=== PATIENT | female | born 1945 | race Caucasian/White ===

== ENCOUNTER 2025-01-14 08:09 | Day surgery (SDC) | payer MEDICARE, OTHER, SELFPAY ==
--- OUTSIDE RECORDS SUMMARY | 2025-01-06 13:34 | XMS_ITS ---
Author Organization [facility] Address [address] [place] [address] Care Team Providers Care Arcade Game Technician Name Role Phone Michele Sangeetha LEE Primary Care Provider Lea Sousa Jr, Bubba Puente [phone] REASON FOR VISIT us Encounters Encounter Location Date Provider Diagnosis [facility] [address] [place] [address] 01/03/2025 Bubba Sousa Jr Plan Of Treatment Next Appt Details Provider Name:Bubba pavon Jr, 01/14/2025 10:00:00 AM, [address] [place] [address] , [place], [place], [phone], Provider Name:Bubba pavon Jr, 06/15/2025 10:40:00 AM, [address], [address], [place], [address], Progress Notes * JEB AWAN EDOB: (79 yo F)Acc No.[id number]:01/03/2025 Patient:?JEB AWAN :1945???Age:79 Y???Sex:Female Address:[place] [address] * true * Date:? Generated for Printi ng/Faxing/eTransmitting on:?01/06/2025 01:34 PM EDT
--- OUTSIDE RECORDS SUMMARY | 2025-01-06 13:34 | XMS_ITS ---
Author Organization [facility] Address [address] [place] [address] Care Team Providers Care Field Broomer Name Role Phone Michele Sangeetha LEE Primary Care Provider Lea Sousa Jr, Bubba Puente REASON FOR VISIT refill pantoprazole Medications Medication SIG (Take, Route, Frequency, Duration) Notes Start Date End Date Status Pantoprazole Sodium 40 MG 1 Orally Twice a day for 30 day(s) 09/10/2024 Active Encounters Encounter Location Date Provider Diagnosis [facility] [address] [place] [address] 10/25/2024 Bubba Sousa Jr Plan Of Treatment Medication Medication Name Sig Start Date Stop Date Notes Pantoprazole Sodium 40 MG 1 Orally Twice a day for 30 day(s) 09/10/2024 Next Appt Details Provider Name:Bubba pavon Jr, 01/14/2025 10:00:00 AM, [address] [place] [address] , [place], [place], [phone], Provider Name:Bubba pavon Jr, 06/15/2025 10:40:00 AM, [address] [place] [address], [address], [place], [address], Progress Notes * JEB AWAN EDOB: 7 (78 yo F)Acc No.[id number]:10/25/2024 Patient:?JEB AWAN :1945???Age:78 Y???Sex:Female Address:[place] [address], [place] [address] [address] * Refills? Refill Pantoprazole Sodium Tablet Delayed Release, 40 MG, Orally, 60, 1, Twice a day, 30 day(s), Refills=0 * true * Date:? Generated for Nuris chapman/Radha/Manuel on:?01/06/2025 01:34 PM EDT
--- OUTSIDE RECORDS SUMMARY | 2025-01-06 13:34 | XMS_ITS ---
Author Organization [facility] Address [address] [place] [address] Care Team Providers Care Barrel Polisher Inside Name Role Phone Michele Sangeetha LEE Primary Care Provider Bubba Willett Jr Allergies Allergen (clinical drug ingredient) Drug/Non Drug Allergy documented on EMR Reaction Allergy Type Onset Date Status Penicillin Unknown Drug Allergy Active REASON FOR VISIT Patient presents today for acid reflux Medications Medication SIG (Take, Route, Frequency, Duration) Notes Start Date End Date Status Pantoprazole Sodium 40 MG 1 Orally Twice a day for 30 day(s) 09/10/2024 Active Pantoprazole Sodium 40 MG 1 tablet 1/2 t o 1 hour before morning meal Orally Once a day for 90 day(s) 06/16/2024 Active PreserVision AREDS 2 - 1 Orally QD as needed Active Advil PRN Active Tylenol PRN Active Clobetasol Propionate 0.05 % 1 application to affected area Externally as directed as needed Active Problems Problem Type SNOMED Code ICD Code Onset Dates Problem Status W/U Status Risk Notes Problem Upper abdominal pain (R10.10) Active confirmed Vital Signs Temperature 98.6 degrees Fahrenheit 12/21/19 25 Blood pressure systolic 001 mm Hg 12/21/19 25 Blood pressure diastolic 01 mm Hg 025 Height 63 in 12/20/2024 Weight 123.2 lbs 12/20/2024 BMI 21.82 kg/m2 12/20/2024 Encounters Encounter Location Date Provider Diagnosis [facility] [address] [place] [address] 12/20/2024 Bubba Sousa Jr Gastroesophageal reflux disease without esophagitis K21.9 ; 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 We discussed gastroesophageal reflux disease today. We discussed Estrella's esophagus. We have recommended further evaluation. We will review her laboratory studies which were done through her primary care provider's office. She will need further evaluation with upper endoscopy. Abdominal ultrasound imaging has also been ordered for her abdominal pain. She understands risks and benefits of endoscopy and agrees to proceed. This will be scheduled at her convenience. 12/20/2024 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 (ICD-10 - K22.70) We discussed h er symptoms today. We discussed gastroesophageal reflux disease today. We discussed Estrella's esophagus. We have recommended further evaluation. We will review her laboratory studies which were done through her primary care provider's office. She will need further evaluation with upper endoscopy. Abdominal ultrasound imaging has also been ordered for her abdominal pain. She understands risks and benefits of endoscopy and agrees to proceed. This will be scheduled at her convenience. 12/20/2024 Upper abdominal pain (ICD-10 - R10.10) We discussed her symptoms today. We discussed gastroesophageal reflux disease today. We discussed Estrella's esophagus. We have recommended further evaluation. We will review her laboratory studies which were done through her primary care provider's office. She will need further evaluation with upper endoscopy. Abdominal ultrasound imaging has also been ordered for her abdominal pain. She understands risks and benefits of endoscopy and agrees to proceed. This will be scheduled at her convenience. Plan Of Treatment Pending Test Test Name Order Date US ABD 12/20/2024 Future Test Test Name Order Date UPPER GI ENDOSCOPY 12/20/2024 Next Appt Details Follow Up: 1 Year, Reason: Provider Name:Bubba pavon Jr, 01/14/2025 10:00:00 AM, [address] [place] [address] , [place], [place], [phone], Provider Name:Bubba pavon Jr, 06/15/2025 10:40:00 AM, [address] [place] [address], [address], [place], [address], Progress Notes * JEB AWAN EDOB: 7 (79 yo F)Acc No.[id number]:12/20/2024 Progress Notes Patient:JEB MAGANA Provider:?Bubba Sousa MD :1945???Age:79 Y???Sex:Female D ate:12/20/2024 Address:[place] [id number] Pcp:Sangeetha Bautista CNP Subjective: * Chief Complaints: * ???1. Patient presents today for acid reflux. * HPI: ???New symptom(s):? Jeb is a pleasant 79-year-old woman seen today in follow-up. She has a history of Estrella's esophagus and gastroesophageal reflux disease. She also complains of upper abdominal pain. Lately reflux symptoms have been under poor control despite pantoprazole 40 mg twice daily. She is using OTC antacids which are liquid at night to help her symptoms. We discussed this today. She has no complaints of dysphagia, hematemesis, or melena. She does have persistent substernal burning despite maximal PPI therapy with omeprazole 40 mg twice daily. * ROS:?General/Constitutional:?Change in appetite?denies.?Fatigue?denies.?ENT:?Patient denies?difficulty swallowing.?Respiratory:?Patient denies?shortness of breath.?Cardiovascular:?Patient denies?chest pain.?Gastrointestinal:?Comments?See HPI for details.?Genitourinary:?Difficulty urinating?denies.?Incontinence?denies.?Musculoskeletal:?Patient denies?muscle aches.?Skin:?Patient denies?pruritis.?Neurologic:?Patient denies?low back pain.?Psychiatric:?Patient denies?mental or physical abuse.? * Medical History:?Colonoscopy 06/15/14, 10 year recall., GERD, Estrella's esophagus, EGD 09/11, intestinal metaplasia no dysplasia, followup optional, Uterine prolapse, Diverticulosis. * Surgical History:?Hysterecto my , hiatal hernia repair , rotator cuff tear repair-right shoulder 2014. * Family History:?Father: dece ased, diagnosed with Heart disease.?Mother: , diagnosed with Heart disease, HTN (hypertension).? Denies family hx of colon cancer, colon polyps or liver ds. * Social History:?Tobacco Use:?Tobacco Use/Smoking?Are you a: nonsmoker.?Drugs/Alcohol:?Alcohol Screen?Points: 1, Interpretation: Negative.?Miscellaneous:?Marital status: . Occupation: retired. * Medications:?Taking Clobetas ol Propionate 0.05 % Ointment 1 application to affected area Externally as directed , Notes to Pharmacist: as needed, Taking PreserVision AREDS 2 - Capsule 1 Orally QD , Notes to Pharmacist: as needed, Taking Tylenol , Notes to Pharmacist: PRN, Taking Advil , Notes to Pharmacist: PRN, Taking Pantoprazole Sodium 40 MG Tablet Delayed Release 1 tablet 1/2 to 1 hour before morning meal Orally Once a day , Taking Pantoprazole Sodium 40 MG Tablet Delayed Release 1 Orally Twice a day , Medication List reviewed and reconciled with the patient * Allergies:?Penicillin. Objective: * Vitals:?Wt: 123.2 lbs, Ht: 6 3 in, BMI: 21.82 Index, BP: 001/01 mm Hg, Temp: 98.6, Wt-k.88. * Examination: ???General Examination: ?GENERAL APPEARANCE:?in no acute distress.?HEAD:?normocephalic.?EYES:?sclera non-icteric.?ORAL CAVITY:?mucosa moist.?NECK/THYROID:?no lymphadenopathy.?SKIN:?anicteric.?HEART:?S1, S2 normal, no murmurs.?LUNGS:?clear to auscultation bilaterally.?CHEST:?normal shape and expansion.?ABDOMEN:?soft, nontender, nondistended, bowel sounds present, no organomegaly .?EXTREMITIES:?no clubbing, cyanosis, or edema.?PSYCH:?cognitive function intact.? Assessment: * Assessment: 1.?Gastroesophageal reflux d isease without esophagitis - K21.9 (Primary)???2.?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 - K22.70???3.?Upper abdominal pain - R10.10??? We discussed her symptoms to day. We discussed gastroesophageal reflux disease today. We discussed Estrella's esophagus. We have recommended further evaluation. We will review her laboratory studies which were done through her primary care provider's office. She will need further evaluation with upper endoscopy. Abdominal ultrasound imaging has also been ordered for her abdominal pain. She understands risks and benefits of endoscopy and agrees to proceed. This will be scheduled at her convenience. Plan: * Treatment: * ?Procedure: UPPER GI ENDOSCOPY (Ordered for 12/20/2024)2.?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?Imaging: US ABD* Velma Muellern 12/20/2024 01: 53:53 PM EDT > [facility]45 a.m. Nothing to eat or drink 8 hours prior to the ultrasound * ?Procedure: UPPER GI ENDOSCOPY (Ordered for 12/20/2024)3.?Upper abdominal pain?Imaging: US ABD* Ami Maddie 12/20/2024 01: 53:53 PM EDT > [facility] at 10:45 a.m. Nothing to eat or drink 8 hours prior to the ultrasound * ?Procedure: UPPER GI ENDOSCOPY (Ordered for 12/20/2024) * Procedure Codes:?G9903 Pt sc rn tbco id as non user, G8785 BP SCR NOT PRFRM REC REASON NOS * Preventive Medicine:? ??Urinary Incontinence:?Urinary Incontinence?Assessment:?Absent,?Plan of care documented:?No, reason not specified.? ??Screenings:?Fall Risk Screening?Fall Risk Assessment:?No falls in the past year,?Screening:?No falls in the past year,?Assessment:?Not performed, no reason specified,?Plan of Care:?Not documented, no reason specified.? * Follow Up:?1 Year * * Sign off status: Completed true * Provider:?Bubba Sousa MD Date:?0 12/20/2024 Generated for Nuris chapman/Radha/Manule on:?01/06/2025 01:34 PM EDT History and Physical Notes * HPI (History of Present Illness) Category Sub-Category Detail Notes Category Not es New symptom(s) Jeb is a pleasant 79-year-old woman seen today in follow-up. She has a history of Estrella's esophagus and gastroesophageal reflux disease. She also complains of upper abdominal pain. Lately reflux symptoms have been under poor control despite pantoprazole 40 mg twice daily. She is using OTC antacids which are liquid at night to help her symptoms. We discussed this today. She has no complaints of dysphagia, hematemesis, or melena. She does have persistent substernal burning despite maximal PPI therapy with omeprazole 40 mg twice daily. Examination Category Sub-Category Detail Notes Category Not es General Examination GENERAL APPEARANCE: in no acute di stress HEAD: normocephalic EYES: sclera non-icteric NECK/THYROID: no lymphadenopathy HEART: S1, S2 normal, no mu rmurs CHEST: normal shape and exp ansion LUNGS: clear to auscultatio n bilaterally ABDOMEN: soft, nontender, non distended, bowel sounds present, no organomegaly SKIN: anicteric EXTREMITIES: no clubbing, cyanosi s, or edema PSYCH: cognitive function i ntact ORAL CAVITY: mucosa moist
--- OUTSIDE RECORDS SUMMARY | 2025-01-06 13:34 | XMS_ITS | Patient Health Record ---
Author Organization [facility] Address [address] [place] [address] Care Team Providers Care Custom Frame Assembler Name Role Phone Michele Sangeetha LEE Primary Care Provider Bubba Willett Jr Unavailable Allergies Allergen (clinical drug ingredient) Drug/Non Drug Allergy documented on EMR Reaction Allergy Type Onset Date Status Penicillin Unknown Drug Allergy Active Reason For Referral No Information Medications Medication SIG (Take, Route, Frequency, Duration) Notes Start Date End Date Status Pantoprazole Sodium 40 MG 1 Orally Twice a day for 30 day(s) 09/10/2024 Active Pantoprazole Sodium 40 MG 1 tablet 1/2 t o 1 hour before morning meal Orally Once a day for 90 day(s) 06/16/2024 Active PreserVision AREDS 2 - 1 Orally QD as needed Active Clobetasol Propionate 0.05 % 1 application to affected area Externally as directed as needed Active Advil PRN Active Tylenol PRN Active Immunizations Vaccine Route Administration Date Status Comme nts Flu vaccine, nasal Unknown 05/27/2016 Administered Flu vaccine no Preserv 3 and > Unknown 07/01/2017 Admin istered Influenza Unknown 06/17/2018 Administered Influenza Unknown 06/01/2019 Administered Influenza Unknown 06/07/2020 Administered Influenza Unknown 05/25/2022 Administered Influenza Unknown 06/03/2023 Administered Influenza Unknown 05/25/2024 Administered Pneumococcal Unknown 06/03/2023 Administered Influenza Unknown 06/16/2024 Administered Problems Problem Type SNOMED Code ICD Code Onset Dates Problem Status W/U Status Risk Notes Problem 302897986 Estrella's esopha gilma without dysplasia (K22.70) Active confirmed Problem 699775089 Irritable bowel syndrome with diarrhea (K58.0) Active confirmed Problem 945173396 Gastroesophageal reflux disease without esophagitis (K21.9) Active confirmed Problem 06125333 Diarrhea, unspecified type (R19.7) Active confirmed Problem Upper abdominal pain (R10.10) Active confirmed Vital Signs Temperature 98.6 degrees Fahrenheit 12/20/2024 Blood pressure diastolic 01 mm Hg 12/20/2024 Height 63 in 12/20/2024 Blood pressure systolic 001 mm Hg 12/20/2024 Weight 123.2 lbs 12/20/2024 BMI 21.82 kg/m2 12/20/2024 Encounters Encounter Location Date Provider Diagnosis [facility] [address] [place] [address] 06/16/2024 Bubba Sousa Jr Irritable bowel syndrome with diarrhea K58.0 and 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 K22.70 [facility] [address] [place] [address] 12/20/2024 Bubba Sousa Jr Gastroesophageal reflux disease without esophagitis K21.9 ; 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 K22.70 and Upper abdominal pain R10.10 [facility] [address] [place] [address] 09/10/2024 Bubba Sousa Jr [facility] [address] [place] [phone] 10/25/2024 Bubba Sousa Jr [facility] [address] [place] [phone] 01/03/2025 Bubba Sousa Jr Assessments Encounter Date Diagnosis (ICD Code) Assessment Notes Treatment Notes Treatment Clinical Notes Section Notes 06/16/2024 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 (ICD-10 - K22.70) Estrella esophagus material was printed We discussed gastroesophageal reflux disease and Estrella's esophagus today. We discussed diet, lifestyle modifications, and weight management. We recommended discontinuing famotidine and beginning pantoprazole. We discussed colonoscopy today. We discussed irritable bowel syndrome with diarrhea today. She prefers to defer further evaluation with colonoscopy at this time. 06/16/2024 Irritable bowel syndrome with diarrhea (ICD-10 - K58.0) We discussed gastroesophageal reflux disease and Estrella's esophagus today. We discussed diet, lifestyle modifications, and weight management. We recommended discontinuing famotidine and beginning pantoprazole. We discussed colonoscopy today. We discussed irritable bowel syndrome with diarrhea today. She prefers to defer further evaluation with colonoscopy at this time. 12/20/2024 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 (ICD-10 - [...] will be scheduled at her convenience. 12/20/2024 Gastroesophageal reflux disease without esophagitis (ICD-10 [...] Treatment Pending Test Test Name Order Date XR GI SERIES 01/09/2012 US ABD 12/20/2024 Future Test Test Name Order Date UPPER GI ENDOSCOPY 02/16/2014 COLONOSCOPY 02/16/2014 UPPER GI ENDOSCOPY 09/05/2017 UPPER GI ENDOSCOPY 12/20/2024 Next Appt Details Provider Name:Bubba pavon Jr, 01/14/2025 10:00:00 AM, [address] [place] [address] , [place], [place], [phone], Provider Name:Bubba pavon Jr, 06/15/2025 10:40:00 AM, [address], [address], [place], [address], Insurance Providers Payer Name Payer Address Payer Phone Subscriber Number Group Number Insured Name Patient Relationship to Insured Coverage Start Date Coverage End Date [place]ICARE OF [place] [address] [place] [address] [phone] [id number] JEB AWAN Self - patient is the insured [address] [address] [place] [phone] [id number] JEB AWAN Self - patient is the insured Medical (General) History Medical History History ICD Code Colonoscopy 06/15/14, 10 year recall. GERD, Estrella's esophagus, E GD 09/11, intestinal metaplasia no dysplasia, followup optional Uterine prolapse Diverticulosis Surgical History Surgery Date(Month/Year) rotator cuff tear repair-right shoulder 2014 hiatal hernia repair Hysterectomy
[2025-01-12 13:30] VITALS: BMI 21.8
[2025-01-14 08:51] VITALS: BMI 17.4
[2025-01-14 08:55] VITALS: BP 159/74; PULSE 74; RESP 17; TEMP 37.2; O2SAT 97
[2025-01-14] MEDS: Lactated Ringers 1,000 ML 100 ML IVCONT (09:01)
--- NOTE | 2025-01-14 09:19 | HO.ANESPROP2 ---
Documented by User: Geraldine Lopez NP 01/13/25 09:20 HPI - Anesthesia Eval Consult details Narrative: 79yo F for Upper Endoscopy [facility] Past Medical History Medical History Diverticulosis Estrella esophagus GERD (gastroesophageal reflux disease) Surgical History Surgical History Hx of repair of right rotator cuff History of repair of hiatal hernia Hx of hysterectomy History of esophagogastroduodenoscopy (EGD) H/O colonoscopy Social History Social History (Updated 01/12/25 @ 13:29 by Deepthi Lam RN) Household Members: Spouse Patient Tobacco Use Status: Never used Tobacco Have you been hit, kicked, punched, or otherwise hurt by someone within the past year? If so, by whom?: No Are you DNR?: No Advance Directives: No Advance Directives Information Provided: Yes Meds Allergies Allergy/AdvReac Type Severity Reaction Status Date / Time Penicillins Allergy Severe Anaphylaxis Verified 01/14/25 08:44 Home Medications ?Medication ?Instructions ?Recorded ?Confirmed ?Last Taken ?Type pantoprazole 40 mg tablet,delayed 40 mg PO DAILY 01/12/25 01/14/25 12/31/24 History release vit C 250 mg-vit E 90 mg-zinc 40 1 tab PO BID 01/12/25 01/14/25 Unknown History mg-copper 1 mp-bibazl-rjftmr capsule (PreserVision AREDS-2) Exam Height,Weight and Vital Signs: Height 5 ft 3 in Weight 55.883 kg Assessment and Plan Assessment Anesthesia Assessment: Chart Reviewed Documented by User: Verito Ignacio DO 01/14/25 09:20 [facility] Past Medical History Medical History Diverticulosis Estrella esophagus GERD (gastroesophageal reflux disease) Family History Family history of problems with anesthesia: No Surgical History Surgical History Hx of repair of right rotator cuff History of repair of hiatal hernia Hx of hysterectomy History of esophagogastroduodenoscopy (EGD) H/O colonoscopy History of Problems with Anesthesia: No Social History Social History (Updated 01/12/25 @ 13:29 by Deepthi Lam RN) Household Members: Spouse Patient Tobacco Use Status: Never used Tobacco Have you been hit, kicked, punched, or otherwise hurt by someone within the past year? If so, by whom?: No Are you DNR?: No Advance Directives: No Advance Directives Information Provided: Yes Meds Allergies Allergy/AdvReac Type Severity Reaction Status Date / Time Penicillins Allergy Severe Anaphylaxis Verified 01/14/25 08:44 Home Medications ?Medication ?Instructions ?Recorded ?Confirmed ?Last Taken ?Type pantoprazole 40 mg tablet,delayed 40 mg PO DAILY 01/12/25 01/14/25 12/31/24 History release vit C 250 mg-vit E 90 mg-zinc 40 1 tab PO BID 01/12/25 01/14/25 Unknown History mg-copper 1 qn-agiydo-bfyrfv capsule (PreserVision AREDS-2) Exam Exam Date and Time: 01/14/25 0920 Height,Weight and Vital Signs: Height 5 ft 3 in Weight 55.883 kg Vital Signs Temperature 99.0 F 01/14/25 08:55 Pulse Rate 74 01/14/25 08:55 Respiratory Rate 17 01/14/25 08:55 Blood Pressure 159/74 H 01/14/25 08:55 Pulse Oximetry 97 01/14/25 08:55 Oxygen Delivery Method Room Air 01/14/25 08:55 Temperature 99.0 F 01/14/25 08:55 Pulse Rate 74 01/14/25 08:55 Respiratory Rate 17 01/14/25 08:55 Blood Pressure 159/74 H 01/14/25 08:55 Pulse Oximetry 97 01/14/25 08:55 Oxygen Delivery Method Room Air 01/14/25 08:55 Airway Mallampati Class: II TM Dist: >3cm Neck ROM: Full Denture: Upper and Lower Heart: S1S2 Lungs: CTAB Assessment and Plan Assessment Anesthesia Assessment: Anesthesia Plan Discussed and Chart Reviewed Final Anesthetic Review Family History of Problems with Anesthesia: No History of Problems with Anesthesia: No NPO: Yes ASA Class: II Final Preanesthetic Review: No Changes in Pt Med Stat, Meds/Allgs Chart Reviewed, Consent Obtained/Reviewed and Anes Risks/Benef Reviewed Patient Risk: Low Procedure Risk: Low Anesthetic Plan Anesthetic Plan: MAC: and Agree w/ Assess. and Plan Disposition: Standard PACU
--- NOTE | 2025-01-14 10:18 | MHC.SHP ---
Pre-Procedural Eval Section A - 24 Hr Update-Section A only Date of Service: 01/14/25 Section B - Complete if H&P > 30 days Chief Complaint: gerd,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 Details of Present Illness: see H*P no changes Relevant Family History (Specify if Yes): No Relevant Social History: None Present Medications: see Short Stay Collaborative assessment Medical History: No relevant PMH Allergies: Allergies Allergy/AdvReac Type Severity Reaction Status Date / Time Penicillins Allergy Severe Anaphylaxis Verified 01/14/25 08:44 Review of Systems Sugical H&P ROS: Negative: Constitution, Cardiovascular, Respiratory, Neurological, Psychiatric, Hem-Onc, Allergic/Immunologic, Gastrointestinal, Genitourinary, Musculoskeletal, Integumentary, Endocrine and Eyes/Ears/Nose/Throat Exam Surgical H&P Exam: Normal: HEENT, Normal: Heart, Normal: Lungs, Normal: Extremities, Normal: Abdomen, Normal: Skin and Normal: Neurological Plan Diagnosis/Plan: Unchanged I have reviewed the history and physical and performed a pertinent physical examination on my patient. No changes have occurred unless specified. Time Spent With Patient Time: Total time managing care of this patient today ____ minutes.
[2025-01-14 10:46] VITALS: BP 134/76; PULSE 86; RESP 12; TEMP 36.2; O2SAT 96
[2025-01-14 11:00] VITALS: BP 126/92; PULSE 65; RESP 16; TEMP 37.1; O2SAT 97
--- NOTE | 2025-01-14 12:00 | OP_ITS ---
DATE OF SERVICE: 01/14/2025 SURGEON: Bubba Sousa MD INDICATIONS: Estrella esophagus and gastroesophageal reflux disease. PREOPERATIVE DIAGNOSIS: POSTOPERATIVE DIAGNOSIS: PROCEDURE PERFORMED: Upper endoscopy with biopsy. ESTIMATED BLOOD LOSS: COMPLICATIONS: ANESTHESIA: Monitored anesthesia care. ASSISTANTS: SPECIMENS: DESCRIPTION OF PROCEDURE: History and physical performed. The risks and benefits of the procedure were explained to the patient. Informed consent was obtained. The patient was placed in left lateral decubitus position. The Olympus video gastroscope was introduced into the esophagus, stomach, and duodenum. Examination was performed. The scope was removed. She tolerated the procedure well and was sent to recovery room in stable condition. FINDINGS: 1. Esophagus: The esophagus showed irregular EG junction. This was biopsied. There were no mass lesions or ulcerated areas. 2. Stomach: Remarkable for a moderate amount of retained food. No polyps were identified. Antral biopsies were obtained from the lower stomach. 3. Duodenum: The bulb and second portion were normal. IMPRESSION: Gastroesophageal reflux disease. RECOMMENDATIONS: Follow up the biopsy results. MD DONAL Diaz/MODL / [id number]
== END 2025-01-14 11:13 | disposition home or self-care (01) ==
PROVIDERS: PCP Nurse Practitioner Family; Visit Provider Internal Medicine Gastroenterology
PROC: 0DJ08ZZ Inspection of Upper Intestinal Tract, Via Natural or Artificial Opening Endoscopic (ICD-10-PCS; CPT 43235; principal; 2025-01-14 10:00)
DX: K22.70 Barrett's esophagus without dysplasia (principal); K22.89 Other specified disease of esophagus; K21.9 Gastro-esophageal reflux disease without esophagitis
CPT/HCPCS: 43239; 88305; 88313; 88342